=== PATIENT | female | born 1975 | race Caucasian/White ===

== ENCOUNTER 2021-11-26 13:15 | Outpatient (CLI) | payer OTHER, SELFPAY ==
--- NOTE | 2021-11-26 01:00 | ECHO_ITS ---
Patient Info Name: Santo Perez Age: 46 years : 1975 Gender: Female Ht: 67 in Wt: 215 lbs BSA: 2.18 m2 HR: 70 bpm BP: 137 / 67 mmHg Heart Rhythm: Sinus Rhythm Technical Quality: Fair Exam Date: 11/26/2021 1:10 PM Exam Location: [facility] Patient Status: Outpatient Admit Date: 11/26/2021 Staff Ordering Physician: Ralph, Dusty Davidson MD Lead Ios Developer: Fiordaliza Costello RDCS Attending Provider: Demond, Dusty Davidson MD Referring Physician: Ralph JULIEN; Exam Type: CA echo doppler color flow Study Info Indications - Screening for cardiovascular condition Complete two-dimensional, color flow and Doppler transthoracic echocardiogram is performed. Summary 1. Complete two-dimensional, color flow and Doppler transthoracic echocardiogram is performed. 2. Left ventricular chamber dimension is normal. 3. Left ventricular systolic function is normal, estimated at 60-65%. 4. The left ventricular diastolic function is grade III diastolic dysfunction. 5. E/e' 6 is not elevated. 6. Left atrial chamber dimension is mildly enlarged. 7. There is mild to moderate mitral valve regurgitation. 8. There is moderate tricuspid valve regurgitation. 9. No pulmonary hypertension, estimated pulmonary arterial systolic pressure is 27 mmHg. Left Ventricle E/e' 6 is not elevated. Left ventricular chamber dimension is normal. Left ventricular systolic function is normal, estimated at 60-65%. The left ventricular diastolic function is grade III diastolic dysfunction. Right Ventricle Right ventricular systolic function is normal and with normal TAPSE 2.0 cm.. Right ventricular chamber dimension is normal. Left Atria Left atrial chamber dimension is mildly enlarged. Right Atria Right atrial chamber dimension is normal. Aortic Valve The aortic valve is trileaflet. There is no aortic valve stenosis. There is no aortic valve regurgitation. Pulmonic Valve There is no pulmonic regurgitation. Mitral Valve There is no mitral valve stenosis. There is mild to moderate mitral valve regurgitation. Tricuspid Valve There is moderate tricuspid valve regurgitation. No pulmonary hypertension, estimated pulmonary arterial systolic pressure is 27 mmHg. Pericardium/Pleural There is no pericardial effusion. Inferior Vena Cava Normal inferior vena cava with >50% collapse upon inspiration consistent with normal right atrial pressure, 5 mmHg. Aorta The aortic root size at the sinus of Valsalva is normal. Left Ventricular Outflow Tract Name Value Normal LVOT 2D LVOT Diameter 2.1 cm LVOT Doppler LVOT Peak Velocity 94 cm/s LVOT Peak Gradient 4 mmHg LVOT Mean Gradient 2 mmHg LVOT VTI 18 cm LVOT VTI/AV VTI Ratio 0.5 LVOT Stroke Volume 65 ml Pulmonic Valve Name Value Normal
== END 2021-11-26 13:16 | disposition home or self-care (01) ==
LOC: CHSIMG 13:17
PROVIDERS: PCP Family Medicine; Visit Provider Internal Medicine Rheumatology
DX: M25.50 Pain in unspecified joint (principal); Z13.6 Encounter for screening for cardiovascular disorders
CPT/HCPCS: 93306

== ENCOUNTER 2023-03-03 13:17 | Outpatient (CLI) | payer OTHER, SELFPAY ==
--- NOTE | ~2023-03-03 | MM_ITS ---
EXAMINATION: MM screening ralph BI w hubert HISTORY: Screening TECHNIQUE: Craniocaudal and mediolateral oblique 3-D tomosynthesis images were obtained and synthetic 2-D images were generated. CAD analysis was submitted and interpreted. COMPARISON: 09/29/2015 BREAST PARENCHYMAL COMPOSITION: There are scattered areas of fibroglandular density. FINDINGS: There is no evidence of suspicious mass, calcification, or architectural distortion to sugg est malignancy in either breast. There has been no suspicious interval change. IMPRESSION: 1. No mammographic evidence of malignancy. 2. Recommend routine screening mammography in one year. BI-RADS Category 1: Negative Reviewed, dictated and finalized at location A.
== END 2023-03-03 13:18 | disposition home or self-care (01) ==
LOC: CHSIMG 13:19
PROVIDERS: PCP Family Medicine; Visit Provider Family Medicine
DX: Z12.31 Encounter for screening mammogram for malignant neoplasm of breast (principal)
CPT/HCPCS: 77063; 77067

== ENCOUNTER 2023-08-24 08:28 | Outpatient (CLI) | payer OTHER, SELFPAY ==
[2023-08-24 09:44] LABS: CRP 0.5 mg/dL (0.0-0.9)
[2023-08-24 10:38] LABS: Erythrocyte Sedimentation Rate 18 mm/hr (0-15)
[2023-08-24 10:41] LABS: Rheumatoid Factor Screen Negative (Negative)
[2023-08-28 16:03] LABS: Lyme Disease Ab (IgM), Blot NEGATIVE (NEGATIVE); Lyme Disease Ab(IgG), Blot NEGATIVE (NEGATIVE)
[2023-08-29 14:09] LABS: Anti Cyclic Citrullinated Pept <16 UNITS
== END 2023-08-24 08:29 | disposition home or self-care (01) ==
LOC: CHSLAB 08:31
PROVIDERS: PCP Family Medicine; Visit Provider Family Medicine
DX: M25.50 Pain in unspecified joint (principal)
CPT/HCPCS: 36415; 84550; 85652; 86038; 86039; 86140; 86200; 86225; 86235; 86430; 86617

== ENCOUNTER 2024-02-09 16:29 | Outpatient (CLI) | payer OTHER, SELFPAY ==
--- NOTE | ~2024-02-09 | XR_ITS ---
EXAM: XR elbow RT 2V, XR elbow LT 2V DATE: 02/09/2024 16:48 (accession [id number]), 02/09/2024 16:49 (accession [id number]) HISTORY: Chronic b/l elbow pain, NKI . COMPARISON: None available. FINDINGS: Normal mineralization. No fracture or dislocation. No lytic or blastic lesion. Mild degene rative change in the right elbow. No erosion or periosteal change. Soft tissues within normal limits. IMPRESSION: No acute osseous finding in the right or left elbow. Reviewed, dictated and finalized at location K. IMPRESSION: No acute osseous finding in the right or left elbow.
== END 2024-02-09 16:30 | disposition home or self-care (01) ==
LOC: CHSIMG 16:36
PROVIDERS: PCP Family Medicine
DX: M25.50 Pain in unspecified joint (principal)
CPT/HCPCS: 73070

== ENCOUNTER 2024-04-03 08:26 | Outpatient (CLI) | payer OTHER, SELFPAY ==
--- NOTE | ~2024-04-03 | MM_ITS ---
EXAMINATION: MM screening ralph BI w hubert HISTORY: Screening mammogram TECHNIQUE: Craniocaudal and mediolateral oblique 3-D tomosynthesis images were obtained and synthetic 2-D images were generated. CAD analysis was submitted and interpreted. COMPARISON: 03/03/2023, 09/29/2015 BREAST PARENCHYMAL COMPOSITION:Not Dense. There are scattered areas of fibroglandular density. FINDINGS: No suspicious mass, calcification, or architectural distortion are identified in either kaden ast to suggest malignancy. There has been no suspicious interval change. IMPRESSION: No mammographic evidence of malignancy. Recommend routine screening mammography in one year. BI-RADS Category 1: Negative Reviewed, dictated and finalized at location . 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
--- NOTE | ~2024-04-03 | XR_ITS ---
XR foot RT min 3V Ordering provider: Li Olsen, History: . RIGHT FOOT PAIN . Comparison: None. FINDINGS: BONES: No acute fracture or dislocation. Hallux valgus. Calcaneus spur. 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 No tarsal coalition . SOFT TISSUES: Normal. IMPRESSION: No acute osseous abnormality of the right foot. Hallux valgus. 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 Reviewed, dictated and finalized at location A. 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
== END 2024-04-03 08:27 | disposition home or self-care (01) ==
LOC: CHSIMG 08:29
PROVIDERS: PCP Family Medicine; Visit Provider Family Medicine
DX: Z12.31 Encounter for screening mammogram for malignant neoplasm of breast (principal); M79.671 Pain in right foot; M20.11 Hallux valgus (acquired), right foot
CPT/HCPCS: 73630; 77063; 77067

== ENCOUNTER 2025-04-08 12:50 | Outpatient (CLI) | payer OTHER, SELFPAY ==
--- NOTE | ~2025-04-08 | MM_ITS ---
EXAMINATION: MM screening ralph BI w hubert HISTORY: Screening TECHNIQUE: Craniocaudal and mediolateral oblique 3-D tomosynthesis images were obtained and synthetic 2-D images were generated. CAD analysis was submitted and interpreted. COMPARISON: Comparison to multiple prior studies sequentially, with oldest reviewed study dated 09/29/2015. BREAST PARENCHYMAL COMPOSITION: Not dense: There are scattered areas of fibroglandular density. FINDINGS: There is no evidence of suspicious mass, calcification, or architectural distortion to suggest malignancy in either breast. There has been no suspicious interval change. IMPRESSION: 1. No mammographic evidence of malignancy. 2. Recommend routine screening mammography in one year. BI-RADS Category 1: Negative Reviewed, dictated and finalized at location [facility]
--- OUTSIDE RECORDS SUMMARY | 2025-04-08 14:17 | XMS_ITS | Encounter Summary ---
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 Legal Sex Female 5:46 PM WIRE MACHINE CUTTER Gender Identity Not on file Sexual Orientation Not on file documented as of this encounter Plan of Treatment Not on file documented as of this encounter Visit Diagnoses Not on filedocumented in this encounter Additional Health Concerns Infection Onset Date Last Indicated Resolved Time COVID-19 Rule Out 02/01/2021 02/01/2021 02/02/2021 7:16 PM CDT COVID-19 Rule Out 02/09/2021 02/09/2021 02/10/2021 10:09 PM CDT COVID-19 Rule Out 02/15/2021 02/15/2021 02/16/2021 8:23 PM CDT COVID-19 Rule Out 02/24/2021 02/24/2021 02/25/2021 7:16 PM CDT COVID-19 Rule Out 03/03/2021 03/03/2021 03/04/2021 7:45 PM CDT documented as of this encounter Care Teams Pull Over Machine Operator Relationship Specialty Start Date End Date Arron Kearns MD [address] [place] [address] PCP - General FAMILY PRACTICE 01/07/19 documented as of this encounter
--- OUTSIDE RECORDS SUMMARY | 2025-04-08 14:17 | XMS_ITS | Clinical Summary ---
Author Organization [facility] [employer] Address [address] [place] [address] Care Team Providers Care Front Sight Attacher Name Role Phone Arron Kearns MD Primary Care Provider [phone] Source Comments [facility],non-owned Affiliates and Associated Physician Practices is amultiple site organization consisting of ambulatory clinics and hospital sitesin [place], [place], [place] and [place]. This disclosure is being madepursuant to the Care Everywhere program and may not contain all information available regarding this patient. Last updated 18.[facility] [employer] Allergies Active Allergy Reactions Criticality Noted Date Comments Dust Mite Extract Swelling 02/28/2017 Eye swelling, itchy skin Fish Allergy Unknown 02/28/2017 Shell fish Shell fish Methylisothiazolinone Rash Medium 02/28/2017 Trichophyton Swelling Medium 02/28/2017 Eye swelling, itchy skin Eye swelling, itchy skin Eye swelling, itchy skin Medications * Be aware that medications may not be up to date on this document. Alwaysverify current medications with the patient. cetirizine (ZYRTEC) 10 MG tablet Take 1 (one) tablet by mouth once daily Active pimecrolimus (ELIDEL) 1 % cream Apply to affected area every 24 hours as needed 06/19/2020 Active Cholecalciferol 25 MCG (1000 UT) Take 1 (one) tablet by mouth once daily Active famotidine (PEPCID) 10 MG tablet Take 1 (one) tablet by mouth once daily Active diclofenac sodium EC (VOLTAREN) 75 MG tablet Take 1 (one) tablet by mouth 2 times daily Active EPINEPHrine (Epipen) 0.3 MG/0.3ML auto-injector pen INJECT 1 AUTO-INJECTOR NEEDED 09/14/2023 Active omeprazole (PriLOSEC) 20 MG capsule Take 1 (one) capsule by mouth once daily Active Social History Tobacco Use Types Packs/Day Years Used Date Smoking Tobacco: Former Smokeless Tobacco: Never Alcohol Use Standard Drinks/Week Comments Yes 0 (1 standard drink = 0.6 oz pur e alcohol) occasionally PHQ-2 Answer Date Recorded PHQ2 TOTAL SCORE 0 11/30/2021 Comments Unknown Sex and Gender Information Value Date Recorded Sex Assigned at Not on file Legal Sex Female 9:00 AM CDT Gender Identity Not on file Sexual Orientation Not on file Last Filed Vital Signs Vital Sign Reading Time Taken Comments Blood Pressure 118/78 12/02/2024 2:12 PM CDT Pulse 89 12/02/2024 2:12 PM CDT Temperature 36.6 C (97.9 F) 11/27/2023 3:29 PM CDT Respiratory Rate - - Oxygen Saturation 98% 12/02/2024 2:12 PM CDT Inhaled Oxygen Concentration - - Weight 106.1 kg (234 lb) 12/02/2024 2:12 PM CDT Height 167.6 cm (5' 6) 12/02/2024 2:12 PM CDT Body Mass Index 37.77 12/02/2024 2:12 PM CDT Plan of Treatment Health Maintenance Due Date Last Done Comments COLOGUARD (AGES 45-75) - COL ON CA SCREENING 1975 COLON MONITORING 1975 COLONOSCOPY - COLON CA SCREENING 1977 CT COLONOGRAPHY - COLON CA SCREENING 1975 Colorectal Cancer Screening 1975 FIT - COLON CA SCREENING 1975 FLEX SIG - COLON CA SCREENING 1975 LIPID TESTING 1975 MAMMOGRAM 1975 HIV SCREENING 01/24/1992 HEPATITIS C SCREENING 01/19/1995 DTAP/TDAP/TD VACCINES (1 - Tdap) 01/24/1996 HEPATITIS B VACCINE (1 of 3 - 19+ 3-dose series) 01/24/1996 Cervical Cancer Screening 1998 PAP SMEAR 1998 PAP with HPV 2007 DEPRESSION SCREENING 05/15/2024 11/30/2021 COVID-19 VACCINE (1 - 2024-2 6 season) 2025 INFLUENZA VACCINE (#1) 2025 ZOSTER VACCINE (1 of 2) 2027 SCREENING FOR DIABETES 12/03/2027 , 02/05/2021 HIB VACCINE Aged Out No longer eligi ble based on patient's age to complete this topic HPV VACCINE Aged Out No longer eligi ble based on patient's age to complete this topic MENINGOCOCCAL (Group B) VACCINE SHARED DECISION-MAKING Aged Out No longer eligible based on patient's age to complete this topic MENINGOCOCCAL GROUPS A/C/Y/W VACCINE Aged Out No longer eligible b ased on patient's age to complete this topic PNEUMOCOCCAL VACCINE Aged Out No long er eligible based on patient's age to complete this topic Procedures Procedure Name Priority Date/Time Associated Diagnosis Comments COMPREHENSIVE METABOLIC PANEL Routine 12/02/2024 3:06 PM T Hypermobility arthralgia from Last 3 Months or Most Recently Relevant to Health Maintenance Results * (ABNORMAL) COMPREHENSIVE METABOLIC PANEL (12/02/2024 3:06 PM CDT) BUN 12 7 - 26 mg/dL 12/02/2024 3:56 PM [facility] Creatinine 0.78 0.56 - 0.96 mg/dL 12/02/2024 3:56 PM [facility] Sodium 141 136 - 145 mmol/L 12/02/2024 3:56 PM [facility] Potassium 3.7 3.5 - 4.5 mmol/L 12/02/2024 3:56 PM [facility] Chloride 113(H) 98 - 107 mmol/L 12/02/2024 3:56 PM [facility] CO2 22 22 - 29 mmol/L 12/02/2024 3:56 PM [facility] Glucose 92 70 - 99 mg/dL 12/02/2024 3:56 PM [facility] Calcium 8.8 8.4 - 10.2 mg/dL 12/02/2024 3:56 PM [facility] Protein Total 7.5 6.0 - 8.3 g/dL 12/02/2024 3:56 PM [facility] Albumin 4.2 3.4 - 5.0 g/dL 12/02/2024 3:56 PM [facility] Bilirubin Total 0.3 0.2 - 1.2 mg/dL 12/02/2024 3:56 PM [facility] Alkaline Phosphatase 87 40 - 150 U/L 12/02/2024 3:56 PM [facility] ALT 12 5 - 55 U/L 12/02/2024 3:56 PM [facility] AST 19 5 - 34 U/L 12/02/2024 3:56 PM [facility] Anion Gap 6 6 - 16 12/02/2024 3:56 PM [facility] BUN/Creatinine Ratio 15 7 - 23 12/02/2024 3:56 PM [facility] Osmolality Calculated 291 275 - 295 mOsm/kg 12/02/2024 3:56 PM [facility] Albumin/Globulin Ratio 1.3 1.1 - 2.3 12/02/2024 3:56 PM [facility] eGFR by CKD-EPI >90 >=90 mL/min/1.7 3 m2 12/02/2024 3:56 PM [facility] Comment:Estimated Glomerular Filtration Rate (eGFR) calculated using the CKD-EPI Creatinine Equation (2020), per the National Kidney Foundation and [place] [employer] Neph[employer] recommendations. Blood BLOOD SPECIMEN / Unknown Lab Venipuncture / Unknown 12/02/2024 3:06 PM CDT 12/02/2024 3:27 PM [facility] Dusty Rosas MD LAB - CHEMISTRY ORDERABLES Final Result [facility] [address] [place] [address], [facility] [phone] from Last 3 Months or Most Recently Relevant to Health Maintenance Insurance AETNA AETNA Care Teams Front Sight Attacher Relationship Specialty Start Date End Date Arron Kearns MD [address] [place] [id number] PCP - General 01/28/21
--- OUTSIDE RECORDS SUMMARY | 2025-04-08 14:17 | XMS_ITS | Clinical Summary ---
Author Organization [facility] Address [address], [facility] [address] [place] [address] Phone Care Team Providers Care Manager Of Learning Name Role Phone Everardo العراقي MD Primary Care Provider [phone] Allergies Active Allergy Reactions Criticality Noted Date Comments Dust Mite Extract Swelling 02/28/2017 Eye swelling, itchy skin Fish Allergy Unknown 02/28/2017 Shell fish Methylisothiazolinone Rash 02/28/2017 Trichophyton Swelling 02/28/2017 Eye swelling, itchy skin Medications Cetirizine HCl (ZYRTEC PO) Take 10 mg by mouth daily. Active vitamin D (CHOLECALCIFEROL ) 1000 UNIT Tablet Take 1,000 Units by mouth daily. Active ibuprofen (MOTRIN) 400 MG Tablet Take 400 mg by mouth every 8 hours as needed (as needed). Active Family History Medical History Relation Name Comments Arthritis Father Colon Cancer Maternal Grandmother Melanoma Maternal Grandmother No Known Problems Mother Rheumatoid Arthritis Paternal Grandmother Relation Name Status Comments Father Alive Maternal Grandmother Mother Alive Paternal Grandmother Social History Tobacco Use Types Packs/Day Years Used Date Smoking Tobacco: Former Cigarettes 0.5 2 Smokeless Tobacco: Never Tobacco Cessation:Counseling Given: Yes Alcohol Use Standard Drinks/Week Comments Not Asked 0 (1 standard drink = 0.6 oz pur e alcohol) 2 x a month few drinks Comments No Sex and Gender Information Value Date Recorded Sex Assigned at Not on file Legal Sex Female 8:31 PM CDT Gender Identity Not on file Sexual Orientation Not on file 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 on file Not on file Last Filed Vital Signs Vital Sign Reading Time Taken Comments Blood Pressure 122/84 02/28/2017 9:04 AM CDT Pulse 83 02/28/2017 9:04 AM CDT Temperature 36.6 C (97.8 F) 02/28/2017 9:04 AM CDT Respiratory Rate 18 02/28/2017 9:04 AM CDT Oxygen Saturation 93% 02/28/2017 9:04 AM CDT Inhaled Oxygen Concentration - - Weight 98.9 kg (218 lb) 02/28/2017 9:04 AM CDT Height 167.6 cm (5' 6) 02/28/2017 9:04 AM CDT Body Mass Index 35.19 02/28/2017 9:04 AM CDT Plan of Treatment Health Maintenance Due Date Last Done Comments Hepatitis C Virus (HCV) Screening 1975 TdaP Immunization 1975 Hepatitis B Immunization (1 of 3 - 19+ 3-dose series) 01/24/1996 Pap Smear 1998 Cervical Cancer Screening (CCS) 2007 HPV/Cotest 2007 Cologuard 2022 Colonoscopy 2022 Colorectal Cancer Screening 2022 Immunochemical Fecal Occult Blood 2022 Influenza Immunization (#1) 2025 SARS-COV-2 Immunization ( season) 2025 Respiratory Syncytial Virus (RSV) Immunization (Adult) (1 - 1-dose 75+ series) 01/24/2052 Human Papillomavirus (HPV) Immunization Aged Out No longer eligible b ased on patient's age to complete this topic Meningococcal Immunization (ACWY) Aged Out No longer eligible based on patient's age to complete this topic Pneumococcal Immunization Combined Aged Out No longer eligible based on patient's age to complete this topic Rotavirus Immunization Aged Out No lo nger eligible based on patient's age to complete this topic Insurance [facility] Care Teams Manager Of Learning Relationship Specialty Start Date End Date Everardo العراقي MD [address] [place] [address] PCP - General Geriatric Medicine 11/18/16
--- OUTSIDE RECORDS SUMMARY | 2025-04-08 14:17 | XMS_ITS | Encounter Summary ---
Author Organization [facility] Address [address] [place] [address] Care Team Providers Care Feed Research Technician Name Role Phone Arron Kearns MD Primary Care Provider [phone] Encounter Details Date Type Department Care Team (Late st Contact Info) Description 10/12/2023 Signicat Message [employer] [facility] [employer] [address] [place] [place] [address] [place], [facility] Provider Proxy Request Social History Tobacco Use Types Packs/Day Years Used Date Smoking Tobacco: Former Cigarettes 0.5 4 1 995 - 1999 Smokeless Tobacco: Never Alcohol Use Standard Drinks/Week Comments Yes 0 (1 standard drink = 0.6 oz pur e alcohol) occasional Comments Unknown Sex and Gender Information Value Date Recorded Sex Assigned at Female 05/31/2024 11:43 AM RN UTILIZATION MANAGEMENT UM Legal Sex Female 5:46 PM RN UTILIZATION MANAGEMENT UM Gender Identity Not on file Sexual Orientation Not on file documented as of this encounter Plan of Treatment Not on file documented as of this encounter Visit Diagnoses Not on filedocumented in this encounter Care Teams Feed Research Technician Relationship Specialty Start Date End Date Arron Kearns MD [address] [place] [address] PCP - General FAMILY PRACTICE 01/07/19 documented as of this encounter
--- OUTSIDE RECORDS SUMMARY | 2025-04-08 14:17 | XMS_ITS | Clinical Summary ---
Author Organization [facility] [address] Address [address] [place] [address] Care Team Providers Care Form Setter/Driver Name Role Phone Li Olsen MD Primary Care Provider Allergies Active Allergy Reactions Criticality Noted Date Comments Methylisothiazolinone Rash Medium 02/28/2017 Mite Extract Swelling Medium 02/28/2017 Eye swelling, itchy skin Nickel Rash Medium 04/16/2024 Shellfish Containing Products Angioedema High Trichophyton Mentagrophytes Allergenic Extract Swelling Medium 02/28/2017 Eye swelling, itchy skin Medications EPINEPHrine (EPIPEN 2-CLARISSE) 0.3 mg/0.3 mL auto-injection syringeIndicatio ns:patient at risk of anaphylaxis Inject 0.3 mL (0.3 mg total) into the muscle as instructed as needed for anaphylaxis 7 Active cetirizine (ZyrTEC) 10 mg tabletIndication s:Allergic Rhinitis Take 1 tablet (10 mg total) by mouth every evening Active diclofenac DR (VOLTAREN) 75 mg EC tabletIndication s:Osteoarthritis ,Pain Take 1 tablet (75 mg total) by mouth 2 (two) times a day Active pimecrolimus (ELIDEL) 1 % creamIndications :Atopic Dermatitis Apply 1 Application topically as needed (itchy rash) 1 Active cholecalciferol (Vitamin D3) 2000 unit capsuleIndicatio ns:Vitamin D Deficiency Take 1 capsule (2,000 Units total) by mouth every evening Active omeprazole (PriLOSEC) 20 mg capsule Take 1 capsule (20 mg total) by mouth every evening Active acetaminophen (TYLENOL) 500 mg tablet Take 2 tablets (1,000 mg total) by mouth every 8 (eight) hours as needed for pain 90 tablet 4 Active amoxicillin 500 mg tablet/capsuleIn dications:Prophy laxis, Medical TAKE 4 PILLS 1 HOUR BEFORE DENTAL APPOINTMENT. 12 tablet/capsu le 5 Active Active Problems Problem Noted Date Diagnosed Date Primary osteoarthritis of right hip 11/24/2023 Trochanteric bursitis of right hip 02/20/2023 Acetabular labrum tear, right, initial encounter 11/12/2020 Migraine with aura 12/29/2016 Episodic tension-type headache 12/29/2016 Allergic contact dermatitis 06/24/2015 Overview (08/25/2017): Description: perform full [place] patch test series (80 allergens minus the ones in True Test to which she has already been tested); stop wearing clothes with blue dye or blue makeup. hold off on any new topical products until after patch testing. Joint pain 02/27/2015 Dermatitis venenata 08/22/2014 Surgical History Surgery Date Site/Laterality Comments LUMBAR DISCECTOMY 05/15/2018 - 05/14/2019 Medical History Medical History Date Comments Personal history of other di seases of the circulatory system History of paroxysmal suprav entricular tachycardia - (Added by TW Conv) Lumbar radiculopathy Arthritis Obesity Family History Medical History Relation Name Comments Juvenile idiopathic arthritis Daughter Migraines Daughter Family history of migraine headaches - (Added by TW Conv) Arthritis Father Family history of arthritis - (Added by TW Conv) Kidney failure Father Family histor y of renal failure - (Added by TW Conv) Migraines Father Family history of migraine headaches - (Added by TW Conv) Alzheimer's disease Maternal Grandfather Family history of Alzheimer's disease - (Added by TW Conv) Brain cancer Maternal Grandmother Brain t umor - (Added by TW Conv) Colon cancer Maternal Grandmother Family history of malignant neoplasm of colon - (Added by TW Conv) Diabetes Maternal Grandmother Family history of diabetes mellitus - (Added by TW Conv) Melanoma Maternal Grandmother Family history of malignant melanoma - (Added by TW Conv) Migraines Mother Family history of migraine headaches - (Added by TW Conv) Raynaud syndrome Other Scleroderma Other Dementia Paternal Grandfather Family history of dementia - (Added by TW Conv) Diabetes Paternal Grandfather Family history of diabetes mellitus - (Added by TW Conv) Rheum arthritis Paternal Grandmother Relation Name Status Comments Daughter Father Maternal Grandfather Maternal Grandmother Mother Other Paternal Grandfather Paternal Grandmother Social History Tobacco Use Types Packs/Day Years Used Date Smoking Tobacco: Former Cigarettes 0.5 6 1 993 - 1999 Smokeless Tobacco: Never Tobacco Cessation:Counseling Given: Not Answered Alcohol Use Standard Drinks/Week Comments Yes 0 (1 standard drink = 0.6 oz pur e alcohol) 1-4 drinks per month AUDIT-C Answer Date Recorded Q1: How often do you have a drink containing alc ohol? 2-4 times a month 04/19/2024 Q2: How many drinks containi ng alcohol do you have on a typical day when you are drinking? 1 or 2 04/19/2024 Q3: How often do you have si x or more drinks on one occasion? Never 04/19/2024 Personal Safety Answer Date Recorded Have you ever been in or are you currently in a harmful physical or emotional relationship or is someone making you feel afraid or unsafe? 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 file Not on file Not on file Last Filed Vital Signs Vital Sign Reading Time Taken Comments Blood Pressure 130/78 04/19/2024 4:20 PM LOG HOOKER Pulse 85 04/19/2024 4:20 PM LOG HOOKER Temperature 36.2 C (97.2 F) 04/19/2024 2:36 PM LOG HOOKER Respiratory Rate 20 04/19/2024 4:25 PM LOG HOOKER Oxygen Saturation 94% 04/19/2024 4:20 PM LOG HOOKER Inhaled Oxygen Concentration - - Weight 103.7 kg (228 lb 9.6 oz) 04/19/2024 9:36 AM LOG HOOKER Height 167.6 cm (5' 5.98) 04/19/2024 9:36 AM CS T Body Mass Index 36.91 04/19/2024 9:36 AM LOG HOOKER Plan of Treatment Health Maintenance Due Date Last Done Comments Breast Cancer Screening-Mammogram 1977 Cervical Cancer Screening 1977 Colon Cancer Screening-Colonoscopy 1977 Depression Screening 1977 Hepatitis C Screening 1977 DTaP/Tdap/Td Vaccine (1 - Tdap) 01/24/1988 Hepatitis B Screening 1995 Regular Well Visit/Exam 18-64 1995 Influenza Vaccine (#1) 2025 Pneumococcal vaccine <65 Aged Out No longer eligible based on patient's age to complete this topic Medical Devices Implanted Type Area Panelboard Operator Device Identifier Shelf Expiration Date Model / Serial / Lot [employer] Cup Empowr Acet System Hemispherical Cluster Hole 52mm 940-02-52f - [id number] Implanted:Qty: 1 on 04/19/2024 by Raf Rosales MD at [facility] Right: Hip [employer] 01/30/2030 940-02-52F / / [id number] [employer] Screw Empowr Acetabular Bone 40mm 940-00-040 - [id number] Implanted:Qty: 1 on 04/19/2024 at [facility] Right: Hip [employer] 08/22/2028 940-00-040 / / [id number] [employer] Liner Empowr Acetabular System Neutral Hxe 36f 941-01-36f - [id number] Implanted:Qty: 1 on 04/19/2024 by Raf Rosales MD at [facility] Right: Hip [employer] 04/08/2029 941-01-36F / / [id number] [employer] Stem Femoral Hip Sz10 Origin C Lateral Offset Collar Sterile [id number] - [id number] Implanted:Qty: 1 on 04/19/2024 by Raf Rosales MD at [facility] Right: Hip [employer] 12/13/2028 [id number] / / [id number] [employer] 36mm Hip Neutral Head Femoral Biolox Delta Fmp System 400-03-362 - [id number] Implanted:Qty: 1 on 04/19/2024 by Raf Rosales MD at [facility] Right: Hip [employer] 03/22/2029 [id number] / / [id number] Insurance [id number] [place] [address] Advance Directives For more information, please contact: [phone] * Full Code (Latest Code Status on File) Date Activated Date Inactivated Comments 04/19/2024 2:44 PM 04/19/2024 9:50 PM Care Teams Form Setter/Driver Relationship Specialty Start Date End Date Li Olsen MD [address] [place] [id number] PCP - General Family Medicine 11/24/23
--- OUTSIDE RECORDS SUMMARY | 2025-04-08 14:17 | XMS_ITS | Clinical Summary ---
Author Organization [facility] Address [address] [place] [id number] Care Team Providers Care Production Mechanic Name Role Phone Arron Kearns MD Primary Care Provider Allergies Active Allergy Reactions Criticality Noted Date Comments Dust Mite Extract Swelling 02/28/2017 Eye swelling, itchy skin Fish Allergy Unknown 02/28/2017 Shell fish Methylisothiazolinone Rash Low 02/28/2017 Trichophyton Swelling 02/28/2017 Eye swelling, itchy skin Medications Cetirizine HCl (ZYRTEC ALLERGY) 10 MG Cap Take 10 mg by mouth daily. Active vitamin D3 (CHOLECALCIFERO L) 25 mcg tablet Take 1 tablet (1,000 Units total) by mouth daily. Active pimecrolimus 1 % cream Apply 1 Application topically as needed. 1 Active famotidine (PEPCID) 10 MG tablet Take 1 tablet (10 mg total) by mouth 2 (two) times daily as needed. Active diclofenac EC (VOLTAREN) 75 MG tabletIndicatio ns:Acetabular labrum tear, right, initial encounter TAKE 1 TABLET BY MOUTH TWICE A DAY 60 tablet 2 5 Active Active Problems Problem Noted Date Diagnosed Date Trochanteric bursitis of right hip 02/20/2023 Acetabular labrum tear, right, initial encounter 11/12/2020 Family History Medical History Relation Comments No Known Problems Brother Arthritis Father Dementia Maternal Grandfather Cancer Maternal Grandmother No Known Problems Mother Dementia Paternal Grandfather Rheumatoid Arthritis Paternal Grandmother No Known Problems Sister 1 No Known Problems Sister 2 No Known Problems Sister 3 Relation Status Comments Brother Alive Father Alive Maternal Grandfather Maternal Grandmother Mother Alive Paternal Grandfather Paternal Grandmother Sister 1 Alive Sister 2 Alive Sister 3 Alive Social History Tobacco Use Types Packs/Day Years Used Date Smoking Tobacco: Former Cigarettes 0.5 4 1 995 - 1998 Smokeless Tobacco: Never Alcohol Use Standard Drinks/Week Comments Yes 0 (1 standard drink = 0.6 oz pur e alcohol) occasional Comments Unknown Sex and Gender Information Value Date Recorded Sex Assigned at Female 05/31/2024 11:43 AM GEAR MACHINIST Legal Sex Female 5:46 PM GEAR MACHINIST Gender Identity Not on file Sexual Orientation Not on file Last Filed Vital Signs Vital Sign Reading Time Taken Comments Blood Pressure 145/76 08/26/2024 2:20 PM CDT Pulse 79 08/26/2024 2:20 PM CDT Temperature - - Respiratory Rate 16 08/26/2024 2:20 PM CDT Oxygen Saturation 98% 08/26/2024 2:20 PM CDT Inhaled Oxygen Concentration - - Weight 104.3 kg (230 lb) 08/26/2024 1:50 PM CDT Height 167.6 cm (5' 6) 08/26/2024 1:50 PM CDT Body Mass Index 37.12 08/26/2024 1:50 PM CDT Plan of Treatment Health Maintenance Due Date Last Done Comments Cervical Cancer Screening Pa p Smear (Age 30 to 64) Every 3 Years 1977 Colorectal Cancer Screening Colonoscopy (10 Years) 1977 Annual Physical 01/24/1980 COVID-19 Vaccine (#1) 1982 Hepatitis C 1995 DTaP, Tdap and Td Vaccines ( 1 - Tdap) 01/24/1996 Hepatitis B Vaccines (1 of 3 - 19+ 3-dose series) 01/24/1996 Pneumococcal Vaccine: Pediat rics (0 to 5 Years) and At-Risk Patients (6 to 49 Years) (1 of 2 - PCV) 01/24/1996 Cervical Cancer Screening Pa p with HPV Testing (Age 30 to 64) Every 5 Years 2007 Cervical Cancer Screening with HPV 2007 Mammogram Screening 2017 Influenza Adult (#1) 2025 Hepatitis A Vaccines Aged Out No long er eligible based on patient's age to complete this topic Meningococcal B Vaccine Aged Out No l onger eligible based on patient's age to complete this topic Meningococcal Vaccine Aged Out No samantha jocelyn eligible based on patient's age to complete this topic RSV Immunizations Under 20 Months Aged Out No longer eligible based on patient's age to complete this topic Insurance [employer] Care Teams Production Mechanic Relationship Specialty Start Date End Date Arron Kearns MD [address] [place] [address] PCP - General FAMILY PRACTICE 01/07/19
--- OUTSIDE RECORDS SUMMARY | 2025-04-08 14:17 | XMS_ITS | Encounter Summary ---
Author Organization [facility] Address [address] [place] [address] Care Team Providers Care Lumber Marker Name Role Phone Arron Kearns MD Primary Care Provider [phone] Reason for Visit * Reason Onset Date Comments Procedure Prior Auth Request 11/12/2021 ECH O Encounter Details Date Type Department Care Team (Late st Contact Info) Description 11/12/2021 Telephone [facility] [address] [place] [address] Dusty Rosas MD [facility] [id number] Procedure Prior Auth Request (ECHO) Social History Tobacco Use Types Packs/Day Years Used Date Smoking Tobacco: Former Smokeless Tobacco: Never Alcohol Use Standard Drinks/Week Comments Yes 0 (1 standard drink = 0.6 oz pur e alcohol) PHQ-2 Answer Date Recorded PHQ2 TOTAL SCORE 0 03/15/2021 Comments Unknown Sex and Gender Information Value Date Recorded Sex Assigned at Not on file Legal Sex Female 9:00 AM CDT Gender Identity Not on file Sexual Orientation Not on file documented as of this encounter Miscellaneous Notes * Telephone Encounter - Liliya Downs LPN - 11/23/2021 2:00 PM CDT [facility] left message requesting Pa for ECHO. Call back #[phone]. documented in this encounter Plan of Treatment Not on file documented as of this encounter Visit Diagnoses Not on filedocumented in this encounter Care Teams Lumber Marker Relationship Specialty Start Date End Date Arron Kearns MD [address] [place] [phone] PCP - General 01/28/21 documented as of this encounter
== END 2025-04-08 12:51 | disposition home or self-care (01) ==
LOC: CHSIMG 12:51
PROVIDERS: PCP Family Medicine; Visit Provider Family Medicine
DX: Z12.31 Encounter for screening mammogram for malignant neoplasm of breast (principal)
CPT/HCPCS: 77063; 77067